=== PATIENT | male | born 1970 | race Two or more races ===

== ENCOUNTER 2016-12-07 17:52 | Emergency (ER) | payer SELFPAY ==
[~2016-12-07] VITALS: Ht 172.7 cm; Wt 83.0 kg
[2016-12-07 18:05] LABS: BASOPHILS % (AUTO) 0.2 % (0.0-2.0); EOSINOPHILS % (AUTO) 0.3 % (0.0-6.0); HEMATOCRIT 41 % (39-51); HEMOGLOBIN 13.9 g/dL (13.5-17.5); LYMPHOCYTES # (AUTO) 2.3 /CMM (0.8-4.8); LYMPHOCYTES % (AUTO) 26.5 % (20.0-44.0); MEAN CORPUSCULAR HEMOGLOBIN 32 PG (26.0-33.0); MEAN CORPUSCULAR HGB CONC 34 g/dl (31.0-36.0); MEAN CORPUSCULAR VOLUME 95 fL (80-96); MONOCYTES # (AUTO) 0.6 /CMM (0.1-1.30); MONOCYTES % (AUTO) 7.2 % (2.0-12.0); NEUTROPHILS # (AUTO) 5.6 /CMM (1.8-8.9); NEUTROPHILS % (AUTO) 65.8 % (43.0-81.0); PLATELET COUNT (AUTO) 131 /CMM (150-450); RDW COEFFICIENT OF VARIATION 14.8 (11.5-15.0); RED BLOOD CELL COUNT(AUTO) 4.31 MIL/uL (4.5-6.0); WHITE BLOOD COUNT (AUTO) 8.6 K/uL (4.3-11.0)
--- NOTE | 2016-12-07 18:10 | NUR ---
PT BIB RA C/O ETOH INTOX, SMELLS OF ALCOHOL, A/OX1 ONLY. ABLE TO MAKE NEEDS KNOWN. RESP EVEN UNLABORED. SKIN WARM NONDIAPHORETIC. NOTED WITH DIFFUSE GENERALIZED RASH OVER BODY. NAD NOTED. VSS. IN ER BED 15 ON MONITOR.
[2016-12-07 18:19] LABS: CALCIUM, SERUM 7.9 mg/dL (8.5-10.1); CARBON DIOXIDE 30 mmol/L (21-32); CHLORIDE 102 mmol/L (98-107); CREATININE 0.9 mg/dL (0.6-1.3); GFR 93 mL/min (>60); GLUCOSE 195 mg/dL (74-106); POTASSIUM 2.9 mmol/L (3.5-5.1); SODIUM SERUM 141 mmol/L (136-145); UREA NITROGEN, BLOOD 3 mg/dL (7-18)
[2016-12-07 18:26] LABS: ALANINE AMINOTRANSFERASE 147 U/L (12-78); ALBUMIN 2.5 g/dL (3.4-5.0); ALCOHOL, BLOOD 496 mg/dL (0-0); ALKALINE PHOSPHATASE 240 U/L (46-116); ASPARTATE AMINOTRANSFERASE 441 U/L (15-37); BILIRUBIN,DIRECT 1.6 mg/dL (0.0-0.2); BILIRUBIN,TOTAL 2.2 mg/dL (0.2-1.0)
[2016-12-07 18:27] LABS: ACETAMINOPHEN 0 ug/ml (10-30); SALICYLATE < 0.2 mg/dL (2.8-20.0)
--- NOTE | 2016-12-07 20:56 | NUR ---
RESTING QUIETLY, NAD NOTED. ALL NEEDS ATTENDED TO.
[2016-12-07] MEDS ORDERED: POTASSIUM CHLORIDE 20 MEQ TAB.PRT.SR PO ONE ×2 (22:00→22:03)
--- NOTE | 2016-12-07 22:30 | NUR ---
Patient is resting comfortably in bed with eyes closed. Easily aroused. VSS. ABLE TO TAKE KDUR PO WITHOUT DIFFICULTY.
--- NOTE | 2016-12-07 23:23 | NUR ---
REPatient is resting comfortably in bed with eyes closed. Easily aroused. VSS. IV removed. Catheter intact and site benign. Pressure and 4x4 applied to site. No bleeding noted. REPORT GIVEN TO DESTINY MORAN RN FOR RACHAEL.
--- NOTE | 2016-12-08 04:23 | NUR ---
Patient discharged to home in stable condition. Denies any sx's at this time. Resp even and unlabored. Written and verbal after care instructions given. Patient verbalizes understanding of instruction. Ambulatory with a steady gait. Given sandwich; juice and ice water as requested.
[2016-12-08 04:24] VITALS: BP 115/74
== END 2016-12-08 04:25 | disposition home or self-care (01) ==
LOC: EDBD 17:56 → ER 17:56
DX: F10.129 Alcohol abuse with intoxication, unspecified (principal); K70.10 Alcoholic hepatitis without ascites; E87.6 Hypokalemia
CPT/HCPCS: 80048-TC; 80076-TC; 85025-TC; A4606; G0480; G6039-TC; Z7610